=== PATIENT | female | born 1955 | race Caucasian/White ===

== ENCOUNTER 2016-12-20 11:25 | Emergency (ER) | payer BC ==
[~2016-12-20] VITALS: Ht 152.4 cm; Wt 51.7 kg
[~2016-12-20 11:25] MED LIST: ALEN70TA4 PO; EPP3/2 IM; LEVO88TA3 PO; MULT-506 PO
[2016-12-20 11:27] VITALS: TEMP 36.4; Ht 152.4 cm; Wt 51.7 kg
[2016-12-20] MEDS ORDERED: CALC-214 PO (11:34)
--- NOTE | 2016-12-20 12:47 | EMERGENCY ROOM VISIT NOTE ---
History Report prepared by Chris: Altagracia Edgar Under the Supervision of: Dr. Francis Wong D.O. First contact with patient: 12:11 Chief Complaint: HEADACHE Stated Complaint: MULLEN, NECK ACHES, MAYBE TICK 7 DAYS PAST History of Present Illness The patient is a 61 year old female who presents to the Emergency Room with complaints of a persistent headache that began four days ago. She currently rates her discomfort as a 5/10 in severity. The patient states that one week ago she was working outside in the [place] at her cabin, noting that there are several deer around. She states that she was completely covered except her neck and hands. The patient states that a few days ago she developed neck stiffness and a headache. She denies any history of headaches. The patient denies seeing any tick on her body. She denies any rash or fever. The patient states that she did hit her head a few days ago. She states that she has continued to work out as she has routinely. The patient states that she is concerned that she may have developed Lyme Disease, which prompted her emergency department today. She additionally notes that she thought that her symptoms could be due to a muscle strain in her shoulder from the outside work. The patient notes a history of osteoarthritis. Source of History: patient Onset: four days ago Position: head Symptom Intensity: 5/10 Quality: ache Timing: other (persistent) Associated Symptoms: + neck pain (stiffness), No fevers, No rash Review of Systems See HPI for pertinent positives & negatives. A total of 10 systems reviewed and were otherwise negative. Past Medical & Surgical Medical Problems: (1) Arthritis Surgical Problems: (1) S/P hip replacement Family History No pertinent family history Social History Smoking Status: Never Smoker Alcohol Use: occasionally Marital Status: Housing Status: lives with roommate Occupation Status: employed Current/Historical Medications Scheduled Calcium W/ Magnesium (Calcium & Magnesium), 1 DOSE PO QPM Levothyroxine Sodium (Levothyroxine Sodium), 88 MCG PO DAILY Multivitamin (Multivitamin), 1 TAB PO DAILY Scheduled PRN Epinephrine (Epipen), 0.3 MG IM UD PRN for ALLERGIC REACTION Meloxicam (Mobic), 7.5 MG PO DAILY PRN for Arthritis Pain Allergies Coded Allergies: Shellfish (Verified Allergy, Unknown, 12/20/16) Uncoded Allergies: BEE STINGS (Allergy, Intermediate, RASH, HIVES, 04/09/14) Physical Exam Vital Signs Date Time Temp Pulse Resp B/P Pulse Ox O2 Delivery O2 Flow Rate FiO2 12/20/16 11:27 36.4 50 20 150/85 99 Room Air Physical Exam CONSTITUTIONAL/VITAL SIGNS: Reviewed / noted above. GENERAL: Non-toxic in appearance. INTEGUMENTARY: Warm, dry, and [place]. HEAD: Normocephalic. EYES: without scleral icterus or trauma. ENT/OROPHARYNX: clear and moist. LYMPHADENOPATHY/NECK: Is supple without lymphadenopathy or meningismus. RESPIRATORY: Lungs clear and equal. CARDIOVASCULAR: Regular rate and rhythm. GI/ABDOMEN: Soft and nontender. No organomegaly or pulsatile mass. No rebound or guarding. Normal bowel sounds. EXTREMITIES: Warm and well perfused. BACK: No CVA tenderness. NEUROLOGICAL: Intact without focal deficits. PSYCHIATRIC: normal affect. MUSCULOSKELETAL: Normally developed with good muscle tone. Medical Decision & Procedures ED Course 1217: Previous medical records were reviewed. The patient was evaluated in room B10. A complete history and physical examination was performed. I discussed all the exam findings with her and I discussed the treatment plan. She verbalized complete understanding and agreement. She is ready to go home. Medical Decision Differential diagnosis: Etiologies such as fracture, dislocation, neurovascular compromise, compartment syndrome, soft tissue injury, as well as others were entertained. This is a 61-year-old female who presents to the ED with a chief complaint of some achiness and stiffness in her neck and a headache. The patient states that she was doing a lot of raking and yard work 7 days ago. She was doing this at a camp. She denies a tick exposure or rash but was concerned about the possibility of Lyme disease. The patient's symptoms have not worsened. She has not developed any other symptoms. She has not had a fever or any new joint aches. She has chronic arthritis. The patient was examined. Her exam was unremarkable. Her vital signs are stable. Her symptoms are likely due to some overuse. I discussed some of the symptoms of Lyme's disease with the patient. After some reassurance, the patient was felt to be stable for discharge. She did not require any intervention at this point. She will continue to observe her symptoms and should she develop any new or concerning symptoms she will see her doctor for a Lyme test and otherwise anticipate improvement in her symptoms over some time. Impression Primary Impression: Musculoskeletal pain Scribe Attestation The scribe's documentation has been prepared under my direction and personally reviewed by me in its entirety. I confirm that the note above accurately reflects all work, treatment, procedures, and medical decision making performed by me. Departure Information Referrals Cordell Lopez M.D. (PCP) Patient Instructions My [facility] Additional Instructions Anticipate steady improvement of your symptoms over the next week or so. Should he develop any fevers, increasing pains, joint swelling, focal weakness see your doctor or return for further evaluation.
[2016-12-20 12:55] VITALS: BP 132/78; PULSE 55; O2SAT 99
[2017-04-12] MEDS ORDERED: MELO7.5T5 PO (16:47)
== END 2016-12-20 12:53 | disposition home or self-care (01) ==
LOC: C.EDB 11:26
DX: M43.6 Torticollis (principal); R51 Headache; M19.90 Unspecified osteoarthritis, unspecified site; Z96.649 Presence of unspecified artificial hip joint; Z79.899 Other long term (current) drug therapy; Z91.018 Allergy to other foods; Z91.030 Bee allergy status

== ENCOUNTER → 2017-02-04 | Outpatient (CLI) | payer BC ==
[~2017-02-04] MED LIST changes: -ALEN70TA4 PO; +CALC-214 PO; +MELO7.5T5 PO; +SYN100 PO
[2017-02-04 11:16] LABS: HEMATOCRIT 43.3 % (37-47); MEAN CELL VOLUME 91.5 fL (80-100); MEAN CORPUSCULAR HGB CONC 32.8 g/dl (32-36); MEAN PLATELET VOLUME 13.1 fL (7.4-10.4); PLATELET COUNT 221 K/uL (130-400); RED BLOOD COUNT 4.73 M/uL (4.2-5.4); WHITE BLOOD COUNT 3.88 K/uL (4.8-10.8)
[2017-02-04 11:28] LABS: ALT/SGPT 35 U/L (12-78); AST/SGOT 26 U/L (15-37); BLOOD UREA NITROGEN 23 mg/dl (7-18); BUN/CREATININE RATIO 23.1 (10-20); CALCIUM 9.4 mg/dl (8.5-10.1); CARBON DIOXIDE 27 mmol/L (21-32); CHLORIDE 110 mmol/L (98-107); CHOLESTEROL 231 mg/dl (0-200); CREATININE 0.99 mg/dl (0.60-1.20); GLUCOSE 84 mg/dl (70-99); POTASSIUM 4.6 mmol/L (3.5-5.1); SODIUM 142 mmol/L (136-145); TRIGLYCERIDES 64 mg/dl (0-150); VERY LOW DENSITY LIPOPROT CALC 13 mg/dl
[2017-02-04 11:39] LABS: ALKALINE PHOSPHATASE 64 U/L (45-117); CHOLESTEROL/HDL RATIO 2.3; HDL CHOLESTEROL 102 mg/dl; LDL CHOLESTEROL CALCULATED 116 mg/dl
[2017-02-04 11:57] LABS: BASO % 0.5 %; BASO ABS # 0.02 K/uL (0-0.2); COMPLETE YES; EOS % 4.9 %; LYMPH ABS # 1.94 K/uL (1.2-3.4); MONO % 9.3 %; NEUT % 35.3 %
[2017-02-04 12:26] LABS: LYME DISEASE AB IGG NEG (NEG); LYME DISEASE AB IGM NEG (NEG)
--- NOTE | 2017-02-08 11:11 | CODING QUERY MEDICAL NECESSITY ---
CQSUPPORTING DIAGNOSIS NEEDED A supporting diagnosis is required for the test/procedure performed on this patient in order for us to be reimbursed by the patient's insurance. Please provide a supporting diagnosis for the following test/procedure listed below next to the test name along with your signature. *If there is no additional diagnosis for this patient that would support the following test/procedure please document that below next to the test/procedure. Test(s)/Procedure(s) that require a supporting diagnosis: DOS 02/04/17 VITAMIN D TEST Provider Signature: Date: Thank you Luma Dougherty Health Information Management Once completed, please kindly fax back to [phone] For questions please call [phone]
== END | disposition home or self-care (01) ==
LOC: C.LABBC 07:32
PROVIDERS: ATTEND Internal Medicine
DX: M54.2 Cervicalgia (principal); Z13.220 Encounter for screening for lipoid disorders; R53.83 Other fatigue; M85.80 Other specified disorders of bone density and structure, unspecified site; M81.0 Age-related osteoporosis without current pathological fracture

== ENCOUNTER → 2017-02-16 | Outpatient (CLI) | payer BC | END | disposition home or self-care (01) | LOC: C.PAPS 09:10 | PROVIDERS: ATTEND Obstetrics & Gynecology | DX: Z01.419 Encounter for gynecological examination (general) (routine) without abnormal findings (principal); Z11.51 Encounter for screening for human papillomavirus (HPV); M85.80 Other specified disorders of bone density and structure, unspecified site ==

== ENCOUNTER → 2017-03-16 | Outpatient (CLI) | payer BC ==
--- NOTE | 2017-03-17 07:44 | MAMMOGRAPHY REPORT ---
BILATERAL DIGITAL SCREENING MAMMOGRAM WITH CAD: 03/16/2017 CLINICAL HISTORY: Patient presents for routine screening. S/P bilateral augmentation. TECHNIQUE: Bilateral CC and MLO views of the breasts with and without implant displacement views were obtained. A repeat left MLO implant displaced view was also obtained. Current study was also evalu ated with a Computer Aided Detection (CAD) system. COMPARISON: Comparison is made to exams dated: 10/09/2015 mammogram, 02/06/2013 mammogram - [facility], 03/25/2009, 03/22/2008, and 03/17/2007. BREAST COMPOSITION: There are scattered areas of fibroglandular density in both breasts. FINDINGS: Bilateral subpectoral saline implants are intact. No suspicious mass, architectural distor tion or cluster of new, suspicious microcalcifications is seen. IMPRESSION: ACR BI-RADS CATEGORY 1: NEGATIVE There is no mammographic evidence of malignancy. A 1 year screening mammogram is recommended. The pa tient will receive written notification of the results. Approximately 10% of breast cancers are not detected with mammography. A negative mammographic report should not delay biopsy if a clinically suggestive mass is present. Bella Duffy M.D. ay/:03/16/2017 16:00:58 Imaging Assistant: Josy Freire, [facility] letter sent: Normal 1/2 BI-RADS Code: ACR BI-RADS Category 1: Negative
== END | disposition home or self-care (01) ==
LOC: C.MAMM 11:53
PROVIDERS: ATTEND Obstetrics & Gynecology
DX: Z12.31 Encounter for screening mammogram for malignant neoplasm of breast (principal)

== ENCOUNTER 2017-04-12 21:46 | Emergency (ER) | payer BC ==
[~2017-04-12] VITALS: Ht 152.4 cm; Wt 53.5 kg
[~2017-04-12 21:46] MED LIST changes: -SYN100 PO
[2017-04-12 21:49] VITALS: TEMP 36.7; Ht 152.4 cm; Wt 53.5 kg
[2017-04-12] MEDS ORDERED: PROPARACAINE HCL 0.5% OP SOLN 15 ML BTL ONE (21:55)
[2017-04-12] MEDS ORDERED: SYN100 PO (21:57)
[2017-04-12] MEDS ORDERED: EPP3/2 IM (21:57)
[2017-04-12] MEDS ORDERED: CIPROFLOXACIN HCL 0.3% OP SOLN 2.5 ML BTL OP STA (22:08)
[2017-04-12 22:20] VITALS: BP 134/72; PULSE 82; O2SAT 98
--- NOTE | 2017-04-12 22:24 | EMERGENCY ROOM VISIT NOTE ---
ED Visit Note First contact with patient: 21:52 CHIEF COMPLAINT: Eye pain HISTORY OF PRESENT ILLNESS: This 62 yo patient presents to the emergency department complaining of pain in the right eye after getting a piece of mulch while gardening today. Patient did wash out her eye. There has been a constant moderate pain and irritation, redness and tearing in the eye. There is a mild blurring of vision at times and light bothers the eye. The vision has not been decreased over all. The patient does not wear contacts. The patient rates the pain as irritating and 5/10. The patient has no had previous injuries to this eye. Tetanus shot is up to date. Pt follows with [facility] ophthalmology. REVIEW OF SYSTEMS: A 6 system review of systems was completed with positives and pertinent negatives listed in the HPI. ALLERGIES:Bees, Shellfish MEDICATIONS: Synthroid, movement, reviewed PMH: Thyroid,Medical Problems: (1) Arthritis Status: Chronic Surgical Problems: (1) S/P hip replacement Status: Resolved SOCIAL HISTORY:No Drug use PHYSICAL EXAM: Vital Signs: Reviewed Nurse's notes, vital signs stable. Visual acuity reviewed from nursing. GENERAL: This is a pleasant female talkative, in no acute distress, but who is uncomfortable from the eye problem. Well- developed well-nourished. EYES: The pupils are equal round and reactive to light and accommodation. EOMs are full and without tenderness. There is discharge of clear tears from the eye eye which is injected. There is no foreign body visible under the eyelid even after lid eversion. Funduscopic exam reveals no hemorrhages, papilledema, or other abnormalities. No foreign body was seen embedded in the cornea under slit lamp exam. The cornea was clear and no hyphema was seen. Fluorescein uptake was observed with ultraviolet light significant for a corneal abrasion at 1:00. EMERGENCY DEPARTMENT COURSE: I examined the patient. Alcaine 2 drops were placed in the patient's right eye. A slit lamp exam was performed as above. Ciloxan two drops was placed in the patient's right eye. Patient was advised to follow-up with her ophthalmology tomorrow here in the ER sooner for increasing pain, visual palms, worsening signs or symptoms or as needed. The patient was discharged home in good condition. DIAGNOSIS: Corneal abrasion of the right eye DISCHARGE INSTRUCTIONS AND TREATMENT: As below Problem List Medical Problems: (1) Arthritis Status: Chronic Surgical Problems: (1) S/P hip replacement Status: Resolved Current/Historical Medications Scheduled Levothyroxine Sodium (Synthroid), 100 MCG PO DAILY Scheduled PRN Epinephrine (Epipen), 0.3 MG IM UD PRN for ALLERGIC REACTION Meloxicam (Mobic), 7.5 MG PO DAILY PRN for Arthritis Pain Allergies Coded Allergies: Bee Venom (Verified Allergy, Intermediate, Rash and hives, 04/12/17) Shellfish (Verified Allergy, Unknown, 12/20/16) Vital Signs Date Time Temp Pulse Resp B/P (MAP) Pulse Ox O2 Delivery O2 Flow Rate FiO2 04/12/17 21:49 36.7 64 20 150/80 97 Room Air Departure Information Impression Primary Impression: Corneal abrasion, right Dispostion Home / Self-Care Condition GOOD Forms WORK / SCHOOL INSTRUCTIONS, HOME CARE DOCUMENTATION FORM, IMPORTANT VISIT INFORMATION Patient Instructions [facility], ED Eye Injury Corneal Abrasion Additional Instructions Use Ciloxan two drops in right eye every two hours while awake for two days; then two drops every four hours while awake for 5 days. Use Ibuprofen 600 mg or Tylenol 1000 mg every 6 hours as needed for pain ( Maximum 3000 mg Tylenol in 24 hr period). If you wear contacts, no contacts for 1 week. Return to the ED or see your eye doctor in 36-48 hours for a recheck. Return to the ED for increasing pain or changes in vision.
== END 2017-04-12 22:23 | disposition home or self-care (01) ==
LOC: C.EDB 21:48 → C.EDD 22:23
DX: S05.01XA Injury of conjunctiva and corneal abrasion without foreign body, right eye, initial encounter (principal); X58.XXXA Exposure to other specified factors, initial encounter; E07.9 Disorder of thyroid, unspecified; Z79.899 Other long term (current) drug therapy; Z91.018 Allergy to other foods; Z91.030 Bee allergy status

== ENCOUNTER → 2017-04-24 | Outpatient (CLI) | payer BC ==
[~2017-04-24] MED LIST changes: -CALC-214 PO; -LEVO88TA3 PO; -MULT-506 PO; +SYN100 PO
== END | disposition home or self-care (01) ==
LOC: C.LABBC 11:44
PROVIDERS: ATTEND Internal Medicine
DX: E03.9 Hypothyroidism, unspecified (principal)

== ENCOUNTER → 2017-07-06 | Outpatient (CLI) | payer BC ==
[2017-07-06 13:10] LABS: BASO % 0.6 %; BASO ABS # 0.03 K/uL (0-0.2); COMPLETE YES; HEMATOCRIT 40.1 % (37-47); LYMPH % 31.6 %; LYMPH ABS # 1.49 K/uL (1.2-3.4); MEAN CELL VOLUME 92.6 fL (80-100); MEAN CORPUSCULAR HEMOGLOBIN 31.6 pg (25-34); MEAN CORPUSCULAR HGB CONC 34.2 g/dl (32-36); MEAN PLATELET VOLUME 12.2 fL (7.4-10.4); NEUT % 57.8 %; PLATELET COUNT 226 K/uL (130-400); RED BLOOD COUNT 4.33 M/uL (4.2-5.4); WHITE BLOOD COUNT 4.72 K/uL (4.8-10.8)
== END | disposition home or self-care (01) ==
LOC: C.LABBC 10:33
PROVIDERS: ATTEND Internal Medicine
DX: E03.9 Hypothyroidism, unspecified (principal)

== ENCOUNTER → 2018-03-23 | Outpatient (CLI) | payer BC ==
[~2018-03-23] MED LIST changes: +LEVO88TA PO; -SYN100 PO
--- NOTE | 2018-03-23 13:52 | MAMMOGRAPHY REPORT ---
BILATERAL DIGITAL SCREENING MAMMOGRAM TOMOSYNTHESIS WITH CAD: 03/23/2018 CLINICAL HISTORY: Patient presents for routine screening. S/P bilateral augmentation. TECHNIQUE: Bilateral CC and MLO views of the breasts with and without implant displacement views were obtained. Tomosynthesis was also performed on the implant displaced views. Current study was also evaluated with a Computer Aided Detection (CAD) system. COMPARISON: Comparison is made to exams dated: 03/16/2017 mammogram, 10/09/2015 mammogram, 02/06/2013 mamm ogram - [facility], 03/25/2009, 03/22/2008, and 03/17/2007. BREAST COMPOSITION: There are scattered areas of fibroglandular density in both breasts. FINDINGS: Bilateral subpectoral saline implants are intact. The glandular pattern is similar to prio r mammograms. No suspicious mass, architectural distortion or cluster of microcalcifications is seen. IMPRESSION: ACR BI-RADS CATEGORY 1: NEGATIVE There is no mammographic evidence of malignancy. A 1 year screening mammogram is recommended.( 019) The patient will receive written notification of the results. Some breast cancers are not detected with mammography. A negative mammographic report should not pat y biopsy if a clinically suggestive mass is present. Bella Duffy M.D. ay/:03/23/2018 08:39:55 Radiology Physician: RT Michaela(R)(M), [facility] letter sent: Normal 1/2 BI-RADS Code: ACR BI-RADS Category 1: Negative
== END | disposition home or self-care (01) ==
LOC: C.MAMM 08:04
PROVIDERS: ATTEND Internal Medicine
DX: Z12.31 Encounter for screening mammogram for malignant neoplasm of breast (principal)